=== PATIENT | female | born 1975 | race African-American/Black ===

== ENCOUNTER 2018-01-09 19:11 | Emergency (ER) | payer BC, SELFPAY | END 2018-01-09 19:41 | disposition home or self-care (01) | LOC: SCSER 19:11 | DX: J32.9 Chronic sinusitis, unspecified (principal); I10 Essential (primary) hypertension | CPT/HCPCS: 99283 ==

== ENCOUNTER 2018-08-14 17:22 | Emergency (ER) | payer BC, SELFPAY ==
[2018-08-14] MEDS ORDERED: methylPREDNISolone Sod Succ/PF 125 MG/2 ML VIAL ONE (17:48)
[2018-08-14] MEDS ORDERED: Famotidine/PF 20 mg/2ml Vial ONE (17:48)
[2018-08-14] MEDS ORDERED: Water For Inject, Bacteriostat 30 ML ONE (17:48)
[2018-08-14] MEDS ORDERED: diphenhydrAMINE 50 MG/ML VIAL ONE (17:48)
[2018-08-14 18:12] LABS: ALT (SGPT) 33 U/L (8-55); AST (SGOT) 30 U/L (5-34); Alkaline Phosphatase 72 U/L (40-150); Anion Gap 12 mmol/L (10-20); BUN (Urea Nitrogen) 7 mg/dL (7.0-18.7); Bilirubin, Total 0.2 mg/dL (0.2-1.2); Calc. Creatinine Clearance 0 mL/min (70-130); Calcium 9.3 mg/dL (7.8-10.44); Carbon Dioxide 25 mmol/L (22-29); Chloride 106 mmol/L (98-107); Estimated GFR-MDRD Greater than 90; Globulin 3.8 g/dL (2.4-3.5); Glucose 92 mg/dL (70-105); Potassium 3.1 mmol/L (3.5-5.1); Protein, Total 7.8 g/dL (6.0-8.3); Sodium 140 mmol/L (136-145)
[2018-08-14 18:13] LABS: #Basophils 0.1 thou/uL (0.0-0.2); #Eosinphils 0.3 thou/uL (0.0-0.7); #Lymphocytes 2.2 thou/uL (1.20-3.40); #Monocytes 0.7 thou/uL (0.11-0.59); #Neutrophils 3.2 thou/uL (1.40-6.50); %Basophils 1.9 % (0.0-1.0); %Eosinophils 4.8 % (0.0-10.0); %Lymphocytes 33.7 % (21.0-51.0); %Monocytes 10.7 % (0.0-10.0); %Neutrophils 48.9 % (42.0-75.0); Anisocytosis MODERATE=16-30 cells (100X) (0-5/hpf); Elliptocytes SLIGHT = 2-5 cells (100X) (0-1/hpf); Hypochromia MODERATE=16-30 cells (100X) (0-5/hpf); MDiff Complete? YES; Mean Corpuscular Hemoglobin 20.8 pg (27.0-31.0); Mean Corpuscular Volume 69.1 fL (78.0-98.0); Mean Platelet Volume 10.6 fL (7.4-10.4); Microcytosis SLIGHT = 6-15 cells (100X) (0-5/hpf); PLT Morphology Comment Appears Adequate; Platelet Count 258 thou/uL (130-400); Polychromasia SLIGHT = 2-3 cells (100X) (0-2/hpf); RBC Distribution Width 20.3 % (11.5-14.5); Red Blood Cell (RBC) Count 4.35 mill/uL (4.20-5.40); Reflex for Review?? YES; Tear Drops SLIGHT = 2-5 cells (100X) (0-1/hpf); White Blood Cell (WBC) Count 6.6 thou/uL (4.8-10.8)
== END 2018-08-14 19:22 | disposition home or self-care (01) ==
LOC: SCSER 17:22
DX: T78.40XA Allergy, unspecified, initial encounter (principal); R22.0 Localized swelling, mass and lump, head; D64.9 Anemia, unspecified; Z79.899 Other long term (current) drug therapy
CPT/HCPCS: 80053; 85025; 85060; 96374; 96375; J1200; J2930; S0028

== ENCOUNTER 2019-01-24 11:56 | Emergency (ER) | payer BC | END 2019-01-24 12:28 | disposition home or self-care (01) | LOC: SCSER 11:56 | DX: J32.9 Chronic sinusitis, unspecified (principal); I10 Essential (primary) hypertension; D64.9 Anemia, unspecified; F41.9 Anxiety disorder, unspecified | CPT/HCPCS: 99283 ==

== ENCOUNTER 2019-04-28 19:58 | Emergency (ER) | payer BC ==
[2019-04-28] MEDS ORDERED: Ondansetron ODT 4 MG TAB ONE (20:36)
== END 2019-04-28 21:30 | disposition home or self-care (01) ==
LOC: SCSER 19:58
DX: R11.2 Nausea with vomiting, unspecified (principal); E86.0 Dehydration; F41.9 Anxiety disorder, unspecified; Z79.899 Other long term (current) drug therapy
CPT/HCPCS: 99283; Q0162